=== PATIENT | male | born 1985 | race Two or more races ===

== ENCOUNTER 2025-10-18 15:49 | Emergency (ER) | payer OTHER ==
[~2025-10-18] VITALS: Ht 175.3 cm; Wt 120.0 kg
[2025-10-18 19:04] LABS: Hematocrit 46.8 % (41.0-53.0); Hemoglobin 15.8 g/dL (13.5-17.5); Mean Corpuscular Hemoglobin 31.1 pg (28.0-32.0); Mean Corpuscular Volume 92.3 fL (80.0-100.0); Nucleated Red Blood Cells % 0.1 %
[2025-10-18 19:19] LABS: Albumin 4.7 g/dL (3.2-4.8); Alkaline Phosphatase 69 U/L (46-116); Anion Gap 14 (5-15); BUN/Creatinine Ratio 10.7 (10.0-20.0); Bilirubin, Total 0.7 mg/dL (0.2-1.0); Calcium 9.9 mg/dL (8.7-10.4); Carbon Dioxide 21 mmol/L (20-31); Glucose 105 mg/dL (74-106); Potassium 3.9 mmol/L (3.5-5.1); Sodium 144 mmol/L (136-145); Total Protein 7.4 g/dL (5.7-8.2)
[2025-10-18 19:20] LABS: Alanine Aminotransferase 44 U/L (7-40); Blood Urea Nitrogen 8 mg/dL (9-23); Chloride 109 mmol/L (98-107)
--- NOTE | 2025-10-18 19:31 | ED.PDOC ---
History of Present Illness HPI Comments 39-year-old obese male presents with spouse for chief complaint of anxiety, shortness of breath, and facial numbness and tingling sensations. Patient endorses onset unprovoked onset of symptoms, while returning home from [place], [place], earlier, this evening. He reports a similar episode 3-4 weeks ago, while at work. Patient mentions have being evaluated and medically cleared by EMS personnel then, with the exception of him being told on his blood pressure being elevated. No recent known sick contact exposure. He denies any chest pain, cough, congestion, fever, or further acute symptoms. Chief Complaint: Shortness of Breath Time Seen by MD: 18:30 Reviewed Notes: Nurses Notes Allergies: Coded Allergies: NO KNOWN ALLERGIES (Unverified , 10/18/25) Information Source: Patient Mode of Arrival: Ambulatory Severity: Moderate Timing: Hours Duration: Since onset Prehospital treatment: None Past Medical History PAST MEDICAL HISTORY: Denies Surgical History: Denies all surgeries Social History Smoker: Non-Smoker Alcohol: Denies ETOH Use Drugs: Denies Drug Use Lives In: Home All Other Systems: Reviewed and Negative (Comprehensive review of systems are negative unless otherwise stated in HPI) Physical Exam General Appearance: No Apparent Distress, Obese HEENT: Normal ENT Inspection, Pharynx Normal, TMs Normal Neck: Full Range of Motion, Non-Tender, Normal, Normal Inspection Respiratory: Chest Non-Tender, Lungs Clear, No Accessory Muscle Use, No Respiratory Distress, Normal Breath Sounds Cardiovascular: No Edema, No JVD, No Murmur, No Gallop, Normal Peripheral Pulses, Regular Rate/Rhythm Breast Exam: Deferred Gastrointestinal: No Organomegaly, Non Tender, No Pulsatile Mass, Normal Bowel Sounds, Soft Genitalia: Deferred Pelvic: Deferred Rectal: Deferred Extremities: No calf tenderness, Normal capillary refill, Normal inspection, Normal range of motion, Non-tender, No pedal edema Musculoskeletal : Apperance: Normal Neurologic: Alert, 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 Was a procedure done?: No Differential Dx Considerations may include: URI, pneumonia, PE, ACS, mi, viral, anxiety, among others X-Ray, Labs, Meds, VS Vital Signs Date Time Temp Pulse Resp B/P (MAP) Pulse Ox O2 Delivery O2 Flow Rate FiO2 10/18/25 21:35 98 Room Air 0 10/18/25 19:58 97.5 62 18 163/93 (116) 98 97.5 10/18/25 15:55 Room Air* 0 21 10/18/25 15:51 97.5 84 15 158/79 96 97.5 Lab Test 10/18/25 19:41 10/18/25 18:57 Range/Units Troponin I High Sensitivity 7 6 </=54 ng/L White Blood Count 10.4 4.4-10.8 10^3/uL Red Blood Count 5.08 4.5-5.90 10^6/uL Hemoglobin 15.8 13.5-17.5 g/dL Hematocrit 46.8 41.0-53.0 % Mean Corpuscular Volume 92.3 80.0-100.0 fL Mean Corpuscular Hemoglobin 31.1 28.0-32.0 pg Mean Corpuscular Hemoglobin Concent 33.7 32.0-36.0 g/dL Red Cell Distribution Width 14.0 11.8-14.3 % Platelet Count 189 140-450 10^3/uL Mean Platelet Volume 9.5 6.9-10.8 fL Neutrophils (%) (Auto) 76.3 37.0-80.0 % Lymphocytes (%) (Auto) 15.6 10.0-50.0 % Monocytes (%) (Auto) 7.0 0.0-12.0 % Eosinophils (%) (Auto) 0.4 0.0-7.0 % Basophils (%) (Auto) 0.7 0.0-2.0 % Neutrophils # (Auto) 7.9 1.6-8.6 10 ^3/uL Lymphocytes # (Auto) 1.6 0.4-5.4 10 ^3/uL Monocytes # (Auto) 0.7 0-1.3 10 ^3/uL Eosinophils # (Auto) 0 0-0.8 10 ^3/uL Basophils # (Auto) 0.1 0-0.2 10 ^3/uL Nucleated Red Blood Cells 0.1 % Sodium Level 144 136-145 mmol/L Potassium Level 3.9 3.5-5.1 mmol/L Chloride Level 109 H 98-107 mmol/L Carbon Dioxide Level 21 20-31 mmol/L Anion Gap 14 5-15 Blood Urea Nitrogen 8 L 9-23 mg/dL Creatinine 0.75 0.700-1.30 mg/dL Glomerular Filtration Rate Calc 119 >90 mL/min BUN/Creatinine Ratio 10.7 10.0-20.0 Serum Glucose 105 74-106 mg/dL Calcium Level 9.9 8.7-10.4 mg/dL Total Bilirubin 0.7 0.2-1.0 mg/dL Aspartate Amino Transferase (AST) 62 H 13-40 U/L Alanine Aminotransferase (ALT) 44 H 7-40 U/L Alkaline Phosphatase 69 46-116 U/L Total Protein 7.4 5.7-8.2 g/dL Albumin 4.7 3.2-4.8 g/dL Thyroid Stimulating Hormone (TSH) 1.37 0.55-4.78 uIU/mL Free Thyroxine (T4) Calculated Pending Time of 1ST Reevaluation: 19:00 Reevaluation 1ST: Unchanged Patient Education/Counseling: Diagnosis, Treatment, Need For Follow Up Family Education/Counseling: Diagnosis, Treatment, Need For Follow Up SEPSIS Sepsis Screen Date sepsis recognized/suspect: Oct 18, 2025 Time Sepsis recognized/suspect: 1553 Recent Procedure: No On Antibiotic Therapy: No Respiratory Rate >20: No Heart Rate >90: No Temp<36 C (96.8 F) or >38.3 C: No SBP <90 or MAP <65 mmHG: No New Acute Mental Status Change: No Is the patient on CPAP, BIPAP,: No Physician Orders Electrocardigram (10/18/25 18:43) Free T4 (Free Thyroxine) (10/18/25 18:43) Vital Signs Date Time Temp Pulse Resp B/P (MAP) Pulse Ox O2 Delivery O2 Flow Rate FiO2 10/18/25 21:35 98 Room Air 0 10/18/25 19:58 97.5 62 18 163/93 (116) 98 97.5 10/18/25 15:55 Room Air* 0 21 10/18/25 15:51 97.5 84 15 158/79 96 97.5 Laboratory Tests Test 10/18/25 18:57 White Blood Count 10.4 10^3/uL (4.4-10.8) Departure 1 Departure Time of Disposition: 21:00 Impression: Primary Impression: Dyspnea Disposition: 01 HOME / SELF CARE / HOMELESS Condition: Stable Discharged With: Self Critical Care Note Critical Care Time?: No Stability Stability form required: No Heart Score Heart Score: Heart Score Response (Comments) Value History Slightly Suspicious 0 EKG Repolarization Disturb 1 Age <45 0 Risk Factors No known risk factors 0 Troponin Normal limit 0 Total 1 I personally scribed for GUANACO DURAND MD ([email or web address]) on 10/18/25 at 19:31. Electronically submitted by Chace Negron ([email or web address]). GUANACO DURAND MD Oct 18, 2025 19:31
[2025-10-18 19:58] VITALS: BP 163/93; PULSE 62; RESP 18; TEMP 97.5
[2025-10-18 21:35] VITALS: O2SAT 98
== END 2025-10-18 21:40 | disposition home or self-care (01) ==
LOC: ER 15:49
DX: R06.00 Dyspnea, unspecified (principal); F41.9 Anxiety disorder, unspecified; Z79.899 Other long term (current) drug therapy
CPT/HCPCS: 36415; 80053; 84439; 84443; 84484; 85025